=== PATIENT | female | born 1975 | race Two or more races ===

== ENCOUNTER 2017-09-07 19:16 | Emergency (ER) | payer SELFPAY ==
[~2017-09-07] VITALS: Ht 160 cm; Wt 69.0 kg
[2017-09-07] MEDS ORDERED: HYDROCODONE/ACETAMINOPHEN 5/325MG TABLET PO ONE (21:45)
[2017-09-07] MEDS ORDERED: ONDANSETRON 4MG ODT PO ONE (22:45)
[2017-09-07] MEDS ORDERED: KETOROLAC 30MG/ML VIAL IM ONE (23:30)
[2017-09-08 00:29] VITALS: BP 125/88
== END 2017-09-08 00:30 | disposition home or self-care (01) ==
LOC: ER 19:16
DX: S50.02XA Contusion of left elbow, initial encounter (principal); S40.012A Contusion of left shoulder, initial encounter; S10.93XA Contusion of unspecified part of neck, initial encounter; S20.229A Contusion of unspecified back wall of thorax, initial encounter; V43.52XA Car driver injured in collision with other type car in traffic accident, initial encounter; Z85.038 Personal history of other malignant neoplasm of large intestine; Z90.710 Acquired absence of both cervix and uterus
CPT/HCPCS: 73030; 73080; 96372; 99284; J1885; Q0162; Z7610

== ENCOUNTER 2017-12-02 02:25 | Emergency (ER) | payer OTHER ==
[~2017-12-02] VITALS: Ht 162.6 cm; Wt 72.0 kg
[2017-12-02] MEDS ORDERED: MORPHINE SULFATE 4 MG/ML CPJ (NOT FOR IM USE) IV ONE ×2 (07:15→10:00)
[2017-12-02] MEDS ORDERED: KETOROLAC 30MG/ML VIAL IV ONE (07:15)
[2017-12-02] MEDS ORDERED: DIPHENHYDRAMINE 50MG/ML VIAL IV ONE ×2 (08:30→11:30)
[2017-12-02 14:03] VITALS: BP 93/58
== END 2017-12-02 14:32 | disposition home or self-care (01) ==
LOC: ER 02:39
DX: S33.5XXA Sprain of ligaments of lumbar spine, initial encounter (principal); M47.896 Other spondylosis, lumbar region; C18.9 Malignant neoplasm of colon, unspecified; C79.51 Secondary malignant neoplasm of bone; Z98.1 Arthrodesis status; Z90.710 Acquired absence of both cervix and uterus; Z88.5 Allergy status to narcotic agent; Y04.0XXA Assault by unarmed brawl or fight, initial encounter; Y93.89 Activity, other specified; Y92.018 Other place in single-family (private) house as the place of occurrence of the external cause
CPT/HCPCS: 72100; 96374; 96375; 96376; 99284; J1200; J1885; J2270; Z7610

== ENCOUNTER 2019-04-29 10:31 | Emergency (ER) | payer SELFPAY ==
[~2019-04-29] VITALS: Ht 160 cm; Wt 73.0 kg
[2019-04-29] MEDS ORDERED: SODIUM CHLORIDE 0.9% 1,000 ML IV ONE (10:51)
[2019-04-29] MEDS ORDERED: KETOROLAC 30MG/ML VIAL IV ONE (11:00)
[2019-04-29 11:36] LABS: BASOPHILS % 0.7 % (0.0-2.0); EOSINOPHILS % 1.6 % (0.0-5.0); HEMATOCRIT. 35.9 % (36.0-48.0); HEMOGLOBIN. 12.1 g/dL (12.0-16.0); LYMPHOCYTES % 16.6 % (20.0-50.0); MEAN CORPUSCULAR HEMOGLOBIN 29.1 pg (28.0-32.0); MEAN CORPUSCULAR VOLUME 86.2 fL (81.0-99.0); MEAN PLATELET VOLUME 9.3 fl (7.4-10.4); MONOCYTES % 6.9 % (2.0-8.0); NEUTROPHILS % 74.2 % (40.0-76.0); PLATELET 219 x1000/uL (130-400); RED BLOOD CELL COUNT 4.17 mill/uL (4.2-5.4); RED CELL DISTRIBUTION WIDTH 14.3 % (11.6-14.6)
[2019-04-29 11:43] LABS: CHLORIDE 112 mEq/L (98-107)
[2019-04-29] MEDS ORDERED: MORPHINE SULFATE 4 MG/ML CPJ (NOT FOR IM USE) IV ONE (13:15)
[2019-04-29] MEDS ORDERED: DIPHENHYDRAMINE 50MG/ML VIAL IV ONE (13:30)
[2019-04-29] MEDS ORDERED: OXYCODONE HCL/ACETAMINOPHEN 5/325MG TABLET PO ONE (14:45)
[2019-04-29 17:52] VITALS: BP 121/69
== END 2019-04-29 17:54 | disposition home or self-care (01) ==
LOC: ER 10:31
DX: S16.1XXA Strain of muscle, fascia and tendon at neck level, initial encounter (principal); M54.6 Pain in thoracic spine; V43.52XA Car driver injured in collision with other type car in traffic accident, initial encounter; Y93.9 Activity, unspecified; Y92.410 Unspecified street and highway as the place of occurrence of the external cause; Z90.710 Acquired absence of both cervix and uterus; Z88.6 Allergy status to analgesic agent
CPT/HCPCS: 36415; 71045; 72125; 72128; 80053; 85025; 96374; 96375; 99284; J1200; J1885; J2270; J7030; Z7610

== ENCOUNTER 2022-06-14 16:15 | Emergency (ER) | payer MEDICAID ==
[~2022-06-14] VITALS: Ht 167.6 cm; Wt 91.0 kg
[2022-06-14] MEDS ORDERED: MORPHINE SULFATE 10 MG/ML CPJ IM ONE (18:15)
[2022-06-14 18:20] VITALS: BP 146/85
[2022-06-14] MEDS ORDERED: CYCL10TA21 MT (20:31)
[2022-06-14] MEDS ORDERED: IBUP-2029 MT (20:31)
== END 2022-06-14 21:39 | disposition home or self-care (01) ==
LOC: ER 16:15
DX: R51.9 Headache, unspecified (principal); M54.2 Cervicalgia; M25.511 Pain in right shoulder; I95.9 Hypotension, unspecified; Y08.89XA Assault by other specified means, initial encounter; Y93.9 Activity, unspecified; Y92.9 Unspecified place or not applicable; Z88.6 Allergy status to analgesic agent; Z85.038 Personal history of other malignant neoplasm of large intestine; Z90.710 Acquired absence of both cervix and uterus
CPT/HCPCS: 70450; 71045; 72125; 73030; 96372; 99284; J2270; Z7610